=== PATIENT | male | born 1970 | race Hispanic/Latino ===

== ENCOUNTER 2018-03-13 07:32 | Day surgery (SDC) | payer BC ==
[~2018-03-13 07:32] MED LIST: DECADRON ONE; DILAUDID ONE; DIPRIVAN 10 MG/ML IV ONE; MARCAINE 0.25% INFILTRATI ONE; VANCOMYCIN PHARMACY TO DOSE IV SCH; VANCOMYCIN/NS 1 GM/250 ML 1 GM/250 ML BAG IV SCH; XYLOCAINE MPF 2% ONE; ZOFRAN ONE
[2018-03-13] MEDS ORDERED: NACL 0.9% 1000 ML 1,000 ML ONE ×2 (08:49→11:38)
[2018-03-13] MEDS ORDERED: DILAUDID IV PRN (09:22)
[2018-03-13] MEDS ORDERED: ZOFRAN IV PRN (09:22)
--- NOTE | 2018-03-13 09:23 | Anesthesia Consultation ---
Anesthesia Consult and Med Hx Date of service: 03/13/18 - Airway Anesthetic Teeth Evaluation: Good ROM Head & Neck: Adequate Mental/Hyoid Distance: Adequate Mallampati Class: Class II Intubation Access Assessment: Probably Good - Pulmonary Exam CTA: Yes - Cardiac Exam Cardiac Exam: RRR - Pre-Operative Health Status ASA Pre-Surgery Classification: ASA2 Proposed Anesthetic Plan: General - Pulmonary Hx Smoking: Yes (DIPS SMOKLESS TOBACCO) Hx Sleep Apnea: No (DK PRE SCREEN LOW RISK) - Cardiovascular System Hx Hypertension: Yes (X 6 YRS) - Other Systems Hx Cancer: No
--- NOTE | 2018-03-13 09:23 | Anesthesia Day of Surgery ---
Anesthesia Day of Surgery - Day of Surgery Patient Examined: Yes Patient H&P Reviewed: Yes Patient is NPO: Yes
[2018-03-13] MEDS ORDERED: PEPCID IV NR (10:00)
[2018-03-13] MEDS ORDERED: VERSED IV NR (10:00)
[2018-03-13] MEDS ORDERED: NACL 0.9% 1000 ML 1,000 ML IV SCH (10:00)
[2018-03-13] MEDS ORDERED: MARCAINE 0.25% INFILTRATI ONE (11:25)
[2018-03-13] MEDS ORDERED: TYLENOL PO PRN (12:57)
[2018-03-13] MEDS ORDERED: DILAUDID IV SCH (13:57)
[2018-03-13] MEDS ORDERED: TORADOL IV ONE (13:57)
--- NOTE | 2018-03-13 14:40 | Operative Report ---
PREOPERATIVE DIAGNOSES: Right knee degenerative joint disease, meniscal tear. POSTOPERATIVE DIAGNOSES: 1. Right knee with radial tear, medial meniscus, near root. 2. Radial tear, lateral meniscus, near root. 3. Grade 3 chondromalacia, medial femoral condyle. 4. Grade 4 focal chondral lesion, medial tibial plateau. 5. Grade 3 chondromalacia of patella. 6. Grade 3 chondromalacia of trochlear groove. PROCEDURE PERFORMED: 1. Right knee arthroscopy with partial medial meniscectomy. 2. Partial lateral meniscectomy. 3. Chondroplasty, medial femoral condyle. 4. Chondroplasty, medial tibial plateau. 5. Chondroplasty, trochlear groove. 6. Chondroplasty, patella. SURGEON: Vijay Moreno M.D. MULTI PURPOSE MACHINE OPERATOR: Ty Sepulveda. ANESTHESIA: General. ESTIMATED BLOOD LOSS: Minimal. COMPLICATIONS: None. DESCRIPTION OF PROCEDURE: The patient underwent successful induction of anesthesia. Lower extremity was meticulously prepped and draped after being exsanguinated and placed in a leg phelps. Arthroscopy was carried out utilizing standard medial and lateral portals. Systematic examination of the joint was carried out demonstrated findings as noted. A limited synovectomy was performed. The patellofemoral compartment demonstrated a focal grade 3 chondral lesion centrally in trochlear groove and patella gently debrided with surface at low power setting in a noncontact chondral sparing mode. The lateral compartment was pristine with the exception of a small radial tear at the posterior and lateral meniscus gently debrided with a full resector. This allowed preservation of peripheral 80% even at the apex. The notch demonstrated normal ACL and PCL. Medial compartment primary source of pathology. Diffuse grade 3 chondromalacia on the medial femoral condyle and focal area of grade 4 at medial tibial plateau. General chondroplasty affected superficially with a full resector and a surface cannula power setting and noncontact chondral sparing mood. A small radial tear was noted at the posterior horn near the insertion into the root. Gently debrided with a full resector and a surface again allowing preservation of peripheral 70% of meniscus even at the apex. Excellent stability and well preserved groove was otherwise achieved. Thorough examination and irrigation sparing the joint carried out of both portals. Intraoperative photos were obtained for documentation. Joints were copiously irrigated with Marcaine. Ports were closed with nylon sutures. Steri-Strips applied. He was taken to the recovery room in satisfactory condition having tolerated the procedure well. JOB# [id number] MISSAEL/BEBETO
--- NOTE | 2018-03-13 16:02 | Post Anesthesia Evaluation ---
- Post Anesthesia Evaluation Patient Participated: Yes Airway Patent: Yes Stable Respiratory Function: Yes Nausea/Vomiting: No Temp > 96.8F: Yes Pain Manageable: Yes Adequeate Hydration: Yes Anesthesia Complications: No Block Receding Appropriately: Not Applicable
[2018-03-13 18:13] VITALS: BP 102/62
== END 2018-03-13 15:05 | disposition home or self-care (01) ==
LOC: OR 07:32
PROVIDERS: ATTEND Orthopaedic Surgery
DX: S83.281A Other tear of lateral meniscus, current injury, right knee, initial encounter (principal); S83.241A Other tear of medial meniscus, current injury, right knee, initial encounter; M17.11 Unilateral primary osteoarthritis, right knee; M94.261 Chondromalacia, right knee; I10 Essential (primary) hypertension; F17.290 Nicotine dependence, other tobacco product, uncomplicated; Z88.0 Allergy status to penicillin; Z88.5 Allergy status to narcotic agent; X58.XXXA Exposure to other specified factors, initial encounter; Y93.89 Activity, other specified; Y92.89 Other specified places as the place of occurrence of the external cause; Y99.8 Other external cause status; Z88.1 Allergy status to other antibiotic agents
CPT/HCPCS: 29880; J1100; J1170; J1885; J2250; J2405; J2704; J3370; J7030